=== PATIENT | male | born 1990 | race Caucasian/White ===

== ENCOUNTER 2020-03-05 13:01 | Emergency (ER) | payer SELFPAY ==
[~2020-03-05] VITALS: Ht 195.6 cm; Wt 119.7 kg
[2020-03-05 13:50] VITALS: BP 156/85
[2020-03-05 14:28] VITALS: BP 156/85
--- NOTE | 2020-03-05 14:28 | NUR ---
PT LEFT WITHOUT DISCHARGE INSTRUCTIONS.
--- NOTE | 2020-03-05 14:50 | NUR ---
Patient discharged with v/s stable. Written and verbal after care instructions given and explained. Patient alert, oriented and verbalized understanding of instructions. Ambulatory with steady gait. All questions addressed prior to discharge. ID band removed. Patient advised to follow up with PMD. Rx of ATIVAN 0.5MG given. Patient educated on indication of medication including possible reaction and side effects. Opportunity to ask questions provided and answered.
== END 2020-03-05 14:50 | disposition home or self-care (01) ==
LOC: MED 13:01
DX: F41.9 Anxiety disorder, unspecified (principal); R07.89 Other chest pain; R42 Dizziness and giddiness
CPT/HCPCS: 99283